=== PATIENT | female | born 1990 | race Caucasian/White ===

== ENCOUNTER → 2020-12-16 10:07 | Outpatient (CLI) | payer BC, SELFPAY ==
[2020-12-16 12:14] LABS: Hematocrit 38.9 % (37-47); Hemoglobin 12.2 g/dL (12.0-15.0); Mean Corp Hgb Conc 31.4 g/dL (32-36); Mean Corpuscular Hgb 28.4 pg (27.0-32.0); Mean Corpuscular Volume 90.5 fL (81-99); Mean Platelet Vol. 9.6 fl (6.2-12.0); Platelet Count 242 K/mm3 (150-450); RBC Distribution Width SD 42.9 fl (35.1-43.9); White Blood Count 4.2 K/mm3 (4.4-11.0)
[2020-12-16 12:37] LABS: Vitamin D,25 Hydroxy 26.9 ng/mL
[2020-12-16 12:43] LABS: Anion Gap 8 (5-15); BUN 15 mg/dL (7-18); BUN/Creat Ratio 19.8 RATIO (10-20); Calcium,Total 8.7 mg/dL (8.5-10.1); Chloride 108 mmol/L (98-107); Creatinine, Serum 0.76 mg/dL (0.55-1.02); EST Glomerular Filtration Rate 95 mL/min (>60); Est Glom Filt Rate - Afr Amer 114 mL/min (>60); Free T3 2.8 pg/mL (2.18-3.98); Glucose 52 mg/dL (74-106); Potassium 4.1 mmol/L (3.5-5.1); Sodium Level 142 mmol/L (136-145); T4 Free Direct 0.85 ng/dL (0.76-1.46); Thyroid Stim Hormone (TSH) 1.64 uIU/mL (0.358-3.74)
== END ==
PROVIDERS: PCP Family Medicine; Referring Provider Family Medicine; Visit Provider Family Medicine
DX: R53.83 Other fatigue (principal); E04.9 Nontoxic goiter, unspecified
CPT/HCPCS: 36415; 80048; 82306; 84439; 84443; 84481; 85027

== ENCOUNTER → 2020-12-21 12:14 | Outpatient (CLI) | payer BC, SELFPAY ==
--- NOTE | 2020-12-21 12:22 | US_ITS ---
STUDY: THYROID ULTRASOUND REASON FOR EXAM: Female, 30 years old. ENLARGED NECK/ PALPABLE GOITER X A FEW YEARS. TECHNIQUE: Ultrasound evaluation of the thyroid was performed with real-time and static meneses-scale imaging. COMPARISON: None. FINDINGS: RIGHT LOBE: The right lobe of the thyroid gland is enlarged and measures 6.3 cm x 2.2 cm x 1.7 cm. There is a heterogeneous echotexture. There are no demonstrated solid, cystic or complex lesions. LEFT LOBE: The left lobe of the thyroid gland is enlarged and measures 5.7 cm x 1.9 cm x 1.6 cm. There is a heterogeneous echotexture. There are no demonstrated solid, cystic or complex lesions. ISTHMUS: The isthmus is enlarged and measures 5.6 mm. The regional lymph nodes are normal. US/Thyroid IMPRESSION: Diffuse enlargement of the thyroid gland with heterogeneous echotexture without a specific mass or nodule. Correlation with nuclear medicine thyroid scan and uptake is recommended. Electronically Signed: Aden Silva MD at 15:16 EST , Service support ,
== END ==
PROVIDERS: PCP Family Medicine; Referring Provider Family Medicine; Visit Provider Family Medicine
DX: E07.9 Disorder of thyroid, unspecified (principal)
CPT/HCPCS: 76536

== ENCOUNTER → 2021-01-05 08:52 | Outpatient (CLI) | payer BC, SELFPAY ==
--- NOTE | 2021-01-05 08:54 | NM_ITS ---
CLINICAL: 30-year-old female with reported history of thyromegaly-goiter formation. I-123 THYROID UPTAKE and SCAN COMPARISON: Thyroid ultrasound report 12/21/2020 FINDINGS: The patient was administered a 303 uCi I-123 capsule by mouth. The 4-hour I-123 radioactive iodine thyroidal uptake was calculated to be 22.3 % (normal 5 to 25 %). The 24-hour I-123 radioactive iodine thyroidal uptake was calculated to be 56.3 % (normal 5 to 40 %). The I-123 thyroid scan demonstrates homogeneous radiopharmaceutical concentration throughout both lobes of a U -shaped thyroid gland. There are no colloidal parenchymal hypofunctioning-cold nodules noted in either lobe of the thyroid gland. NM/Thyroid Uptake Single or Mult IMPRESSION: 1. UPPER LIMITS OF NORMAL 4- and ABNORMAL-ELEVATED 24-hour I-123 radioactive iodine thyroidal uptakes. 2. The I-123 thyroid scan in conjunction with the 24-hour I-123 radioactive IODINE thyroidal uptake value is most consistent with the presence of diffuse toxic goiter. 3. If not previously obtained correlation with in-vitro thyroid function studies is recommended. Electronically Signed: Roberth Dunlap DO at 22:52 EST Tel , Service support ,
== END ==
PROVIDERS: PCP Family Medicine; Referring Provider Family Medicine; Visit Provider Family Medicine
DX: E07.9 Disorder of thyroid, unspecified (principal)
CPT/HCPCS: 78012; A9516

== ENCOUNTER → 2025-09-03 | Outpatient (CLI) | payer OTHER, SELFPAY | END | disposition home or self-care (01) | LOC: LABSPEC 12:13 | PROVIDERS: PCP Family Medicine | DX: N39.0 Urinary tract infection, site not specified (principal) | CPT/HCPCS: 87086; 87088 ==